=== PATIENT | female | born 1975 | race Caucasian/White ===

== ENCOUNTER 2021-02-21 11:26 | Emergency (ER) | payer MEDICAID, SELFPAY ==
[~2021-02-21] VITALS: Ht 162.6 cm; Wt 44.7 kg
--- NOTE | 2021-02-21 11:58 | REP ---
INDICATION: FALL COMPARISON: None. TECHNIQUE: Three views of the right shoulder. FINDINGS: Anteroinferior glenohumeral joint dislocation noted. No obvious acute fracture. Acromioclavicular joint is normal. Surrounding soft tissues are normal. IMPRESSION: Anteroinferior glenohumeral joint dislocation. <Electronically signed by Jeff Haskins > 02/21/21 [id number]
[2021-02-21] MEDS ORDERED: diazePAM 10MG/2ML SYRINGE (J3360 PER 5MG) IV ONE (12:35)
[2021-02-21] MEDS ORDERED: MORPHINE 2 MG/ML 1ML VIAL (J2270) IV ONE (12:35)
[2021-02-21] MEDS ORDERED: MORPHINE 4 MG/ML 1ML VIAL/SYRINGE (J2270) IV ONE (13:00)
[2021-02-21] MEDS ORDERED: HYDR-3713 PO (14:04)
[2021-02-21 14:17] VITALS: BP 154/89
--- NOTE | 2021-02-21 14:30 | REP ---
INDICATION: post reduction COMPARISON: 02/21/2021 TECHNIQUE: Single AP view FINDINGS: Satisfactory reduction at the glenohumeral joint. No acute fracture. IMPRESSION: Satisfactory reduction. <Electronically signed by Jeff Haskins > 02/21/21 [id number]
== END 2021-02-21 14:24 | disposition home or self-care (01) ==
LOC: M ED 11:26
DX: S43.081A Other subluxation of right shoulder joint, initial encounter (principal); W01.0XXA Fall on same level from slipping, tripping and stumbling without subsequent striking against object, initial encounter; Y92.018 Other place in single-family (private) house as the place of occurrence of the external cause; F17.210 Nicotine dependence, cigarettes, uncomplicated
CPT/HCPCS: 23650; 73020; 73030; 96374; 96375; 96376; 99284; J2270; J3360